=== PATIENT | female | born 1945 | race Hispanic/Latino ===

== ENCOUNTER 2023-05-02 15:50 | Observation (INO) | payer MEDICARE ==
[~2023-05-02] VITALS: Ht 144.8 cm; Wt 47.8 kg
[2023-05-02 18:00] VITALS: BP 154/78; PULSE 74; RESP 18
[2023-05-02 18:46] VITALS: O2SAT 100
[2023-05-02] MEDS ORDERED: 0.9%NACL 50ML IV SCH (20:00)
[2023-05-02] MEDS ORDERED: HYDRALAZINE 20MG/ML VIAL IV PRN (20:00)
[2023-05-02] MEDS ORDERED: ONDANSETRON 4MG INJ IVP PRN (20:00)
[2023-05-02] MEDS ORDERED: LABETALOL 20MG SYG IV PRN (20:00)
[2023-05-02] MEDS ORDERED: HYDROMORPHONE 1 MG INJ IVP PRN (20:00)
[2023-05-02] MEDS ORDERED: RASA1TAB4 PO (20:08)
[2023-05-02] MEDS ORDERED: LEVO50CA4 PO (20:08)
[2023-05-02] MEDS ORDERED: [UNRECOGNIZED DRUG - CODE] PO (20:08)
[2023-05-02] MEDS ORDERED: ROPI3TAB21 PO (20:08)
[2023-05-02] MEDS ORDERED: ERGO500093 PO (20:08)
[2023-05-02] MEDS ORDERED: CARB1CAP PO (20:08)
[2023-05-02] MEDS ORDERED: BENF150C PO (20:08)
[2023-05-02 20:09] VITALS: BP 122/72; PULSE 77; RESP 16
[2023-05-02 20:20] VITALS: O2SAT 100
[2023-05-02 20:20] LABS: HEMATOCRIT 34.3 % (36-48); MEAN CORPUSCULAR HEMOGLOBIN 29.7 pg (27.0-33.0); MEAN CORPUSCULAR HGB CONC 32.7 g/dL (32.0-36.0); RED BLOOD CELL COUNT(AUTO) 3.77 MIL/uL (4.00-5.50); RED CELL DISTRIBUTION WIDTH 12.5 % (11.0-15.5); WHITE BLOOD COUNT (AUTO) 4.5 K/uL (4.8-10.8)
[2023-05-02] MEDS: ZOSYN 3.375GM +NS 50ML IVPB SCH (20:27)
[2023-05-02] MEDS: 0.9%NACL 1000ML 1,000 ML IV SCH (20:27)
[2023-05-02 20:48] LABS: ALBUMIN 3.3 g/dL (3.5-5.0); BILIRUBIN,TOTAL 0.5 mg/dL (0.2-1.0); CREATININE 0.7 mg/dL (0.5-1.5); POTASSIUM 3.7 mmol/L (3.5-5.1); TOTAL PROTEIN, SERUM 6.3 g/dL (6.0-8.3)
[2023-05-02] MEDS: INSULIN HUMULIN R 100 UNIT/ML 3ML SQ SCH (21:00)
[2023-05-02 23:35] VITALS: BP 166/66; PULSE 94; RESP 18
[2023-05-02 23:36] VITALS: BP 129/71; PULSE 75; RESP 18
[2023-05-03 02:30] LABS: APPEARANCE,URINE CLEAR (CLEAR); BILIRUBIN,URINE NEGATIVE (NEGATIVE); COLOR,URINE LIGHT-YELLOW (YELLOW); GLUCOSE, URINE (UA) NEGATIVE (NEGATIVE); KETONES,URINE 10 mg/dL (NEGATIVE); LEUKOCYTE ESTERASE ,URINE NEGATIVE Leu/uL (NEGATIVE); NITRATE,URINE NEGATIVE (NEGATIVE); PROTEIN,URINE NEGATIVE (NEGATIVE); UROBILINOGEN,URINE 0.2 mg/dL (0.2-1.0)
[2023-05-03 02:37] LABS: ADD UA MICROSCOPIC YES
[2023-05-03 02:43] LABS: SQUAMOUS EPITHELIAL CELL,UR RARE /HPF (0-2); WBC,URINE 0-1 /HPF (0-1)
[2023-05-03 03:58] LABS: MEAN CORPUSCULAR HEMOGLOBIN 29.5 pg (27.0-33.0); MEAN CORPUSCULAR HGB CONC 32.6 g/dL (32.0-36.0); MEAN CORPUSCULAR VOLUME 90.7 fL (79-99); PLATELET COUNT (AUTO) 163 K/uL (130-400); RED BLOOD CELL COUNT(AUTO) 3.86 MIL/uL (4.00-5.50); RED CELL DISTRIBUTION WIDTH 12.5 % (11.0-15.5); WHITE BLOOD COUNT (AUTO) 3.7 K/uL (4.8-10.8)
[2023-05-03] MEDS: ZOSYN 3.375GM +NS 50ML IVPB SCH ×3 (03:59→20:15)
[2023-05-03 04:03] VITALS: BP 133/75; PULSE 69; RESP 18
[2023-05-03 04:29] LABS: CREATININE 0.7 mg/dL (0.5-1.5); MAGNESIUM 1.7 mg/dL (1.80-2.40); PHOSPHORUS 2.6 mg/dL (2.5-4.9); POTASSIUM 3.4 mmol/L (3.5-5.1); THYROID STIMULATING HORMONE 1.36 uIU/mL (0.36-3.74)
[2023-05-03 04:32] LABS: EOSINOPHILS % (MANUAL) 1 % (1-6); LYMPHOCYTES % (MANUAL) 37 % (22-44); SEGMENTED NEUTROPHILS % 62 % (40-70); TOTAL CELLS COUNTED 100
[2023-05-03 04:33] LABS: MAN.DIFF COMMENT-IMPRESSION MANUAL DIFFERENTIAL; PLATELET MORPHOLOGY COMMENT ADEQUATE; WBC MORPHOLOGY NORMAL
[2023-05-03 04:34] LABS: B-TYPE NATRIURETIC PEPTIDE 13 pg/mL (0-100)
[2023-05-03] MEDS ORDERED: POTASSIUM CHLORIDE 20MEQ/100ML 100 ML IV PRN ×2 (05:00→07:00)
[2023-05-03] MEDS ORDERED: POTASSIUM CHLORIDE 10% ELIXIR 20 MEQ/15 ML UDCUP PO PRN ×2 (05:00→07:00)
[2023-05-03] MEDS ORDERED: MAGNESIUM 2GM PREMIX 50ML 50 ML IV PRN (05:00)
[2023-05-03] MEDS: INSULIN HUMULIN R 100 UNIT/ML 3ML SQ SCH ×4 (05:27→20:16)
[2023-05-03] MEDS: 0.9%NACL 1000ML 1,000 ML IV SCH ×2 (05:28→16:55)
[2023-05-03 08:00] VITALS: BP 137/74; PULSE 69; RESP 18; O2SAT 99
[2023-05-03] MEDS: ENOXAPARIN SODIUM 30 MG/0.3 ML SQ SCH (09:00)
[2023-05-03 12:00] VITALS: BP 117/63; PULSE 67; RESP 18
[2023-05-03 16:00] VITALS: BP 113/68; PULSE 78; RESP 18
[2023-05-03] MEDS: KCL 20 MEQ ERTAB PO PRN ×2 (18:43→20:15)
[2023-05-03 20:00] VITALS: BP 146/75; PULSE 69; RESP 18
[2023-05-03 20:15] VITALS: O2SAT 99
[2023-05-04] VITALS: BP 156/80; PULSE 70; RESP 18
[2023-05-04] MEDS: 0.9%NACL 1000ML 1,000 ML IV SCH ×2 (02:00→12:00)
[2023-05-04 03:47] LABS: BASOPHILS # (AUTO) 0.03 K/uL (0.00-0.20); BASOPHILS % (AUTO) 0.8 % (0.0-5.0); EOSINOPHILS # (AUTO) 0.01 K/uL (0.00-0.70); EOSINOPHILS % (AUTO) 0.3 % (0.0-8.0); HEMATOCRIT 35.3 % (36-48); IMMATURE GRANULOCYTE ABSOLUTE 0.01 K/uL (0-1); LYMPHOCYTES # (AUTO) 1.2 K/uL (1.0-4.8); LYMPHOCYTES % (AUTO) 30.3 % (21.0-51.0); MEAN CORPUSCULAR HEMOGLOBIN 29.5 pg (27.0-33.0); MEAN CORPUSCULAR HGB CONC 32.6 g/dL (32.0-36.0); MEAN CORPUSCULAR VOLUME 90.5 fL (79-99); MONOCYTES # (AUTO) 0.3 K/uL (0.1-1.0); MONOCYTES % (AUTO) 7.5 % (3.0-13.0); NEUTROPHILS # (AUTO) 2.4 K/uL (1.8-7.7); NEUTROPHILS % (AUTO) 60.8 % (40.0-77.0); PLATELET COUNT (AUTO) 163 K/uL (130-400); RED CELL DISTRIBUTION WIDTH 12.6 % (11.0-15.5); WHITE BLOOD COUNT (AUTO) 3.9 K/uL (4.8-10.8)
[2023-05-04 04:00] VITALS: BP 113/71; PULSE 70; RESP 18
[2023-05-04 04:05] LABS: ALBUMIN 3.4 g/dL (3.5-5.0); BILIRUBIN,TOTAL 0.9 mg/dL (0.2-1.0); CREATININE 0.7 mg/dL (0.5-1.5); POTASSIUM 3.9 mmol/L (3.5-5.1); TOTAL PROTEIN, SERUM 6.3 g/dL (6.0-8.3)
[2023-05-04] MEDS: ZOSYN 3.375GM +NS 50ML IVPB SCH ×2 (04:23→14:03)
[2023-05-04] MEDS: INSULIN HUMULIN R 100 UNIT/ML 3ML SQ SCH ×3 (05:10→16:30)
[2023-05-04 07:30] VITALS: BP 106/70; PULSE 91; RESP 18
[2023-05-04 08:00] VITALS: O2SAT 100
[2023-05-04] MEDS: ENOXAPARIN SODIUM 30 MG/0.3 ML SQ SCH (08:50)
[2023-05-04] MEDS ORDERED: LACTULOSE 20 GM/30 ML UDCUP PO ONE (11:30)
[2023-05-04 11:33] VITALS: BP 137/75; PULSE 85; RESP 16
== END 2023-05-04 17:00 | disposition home or self-care (01) ==
LOC: EDH 15:50 → DIRECT 15:51 → 4BH 18:00
PROVIDERS: ADMIT Internal Medicine Pulmonary Disease; ATTEND Internal Medicine Pulmonary Disease
DX: K59.00 Constipation, unspecified (principal); M81.0 Age-related osteoporosis without current pathological fracture; M48.56XA Collapsed vertebra, not elsewhere classified, lumbar region, initial encounter for fracture; E05.90 Thyrotoxicosis, unspecified without thyrotoxic crisis or storm; G20 Parkinson's disease; F02.80 Dementia in other diseases classified elsewhere, unspecified severity, without behavioral disturbance, psychotic disturbance, mood disturbance, and anxiety; Z79.899 Other long term (current) drug therapy
CPT/HCPCS: 96365; 96366 ×3; 82550 ×4; 83874 ×3; 84484 ×3; 80053 ×2; 85027; 36415 ×3; 74176 ×2; 84145; 96361; 96367; 84443; 83615; 83735 ×2; 84100; 80048; 83880; 85025 ×2; 87088; 82948 ×5; 81001; G0378 ×45; J2543 ×6; J1650

== ENCOUNTER → 2023-06-18 | Outpatient (CLI) | payer MEDICARE ==
[~2023-06-18] MED LIST: BENF150C PO; CARB1CAP PO; ERGO500093 PO; LEVO50CA4 PO; RASA1TAB4 PO; ROPI3TAB21 PO; [UNRECOGNIZED DRUG - CODE] PO
== END | disposition home or self-care (01) ==
LOC: RAH 07:22
PROVIDERS: ATTEND Internal Medicine
DX: R14.0 Abdominal distension (gaseous) (principal); R63.4 Abnormal weight loss
CPT/HCPCS: 78264; A9541

== ENCOUNTER → 2024-08-04 | Outpatient (CLI) | payer MEDICARE | END | disposition home or self-care (01) | LOC: SHCH 11:16 | PROVIDERS: ATTEND Internal Medicine Cardiovascular Disease | DX: R60.9 Edema, unspecified (principal) | CPT/HCPCS: 93306; 93356 ==

== ENCOUNTER → 2024-09-02 | Outpatient (CLI) | payer MEDICARE ==
--- NOTE | 2024-09-03 13:39 | HMCSR ---
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 (R) 65.5cm/sec, Biphasic, Prof Fem Art. (L) 60.2cm/sec, Biphasic, Fem Art Prox. (R) 88.8cm/sec, Biphasic, Fem Art Prox. (L) 89.1cm/sec, Biphasic, Fem Art Mid. (R) 100.7cm/sec, Biphasic, Fem Art Mid. (L) 76.3cm/sec, Biphasic, Fem Art Dist (R) 64.6cm/sec, Biphasic, Fem Art Dist. (L) 62.8cm/sec, Biphasic, Pop Art(AK) (R) 71.8cm/sec, Biphasic, Pop Art (AK) (L) 61.2cm/sec, Biphasic, Pop Art (Fossa)(R) 55.2cm/sec, Biphasic, Pop Art (Fossa) (L) 57.9cm/sec, Biphasic, Pop Art(BK) (R) 88.8cm/sec, Biphasic, Pop Art (BK) (L) 69.3cm/sec, Biphasic, TAPE WEAVER Prox. (R) 79.0cm/sec, Biphasic, TAPE WEAVER Prox. (L) 70.1cm/sec, Biphasic, TAPE WEAVER Mid. (R) 73.6cm/sec, Biphasic, TAPE WEAVER Mid. (L) 69.3cm/sec, Biphasic, TAPE WEAVER Dist. (R) 79.0cm/sec, Biphasic, TAPE WEAVER Dist. (L) 61.2cm/sec, Biphasic, Per Art Prox. (R) 49.3cm/sec, Biphasic, Per Art Prox. (L) 44.0cm/sec, Biphasic, Per Art Mid. (R) 49.0cm/sec, Biphasic, Per Art Mid. (L) 39.2cm/sec, Biphasic, Per Art Dist. (R) 46.2cm/sec, Biphasic, Per Art Dist. (L) 35.9cm/sec, Biphasic, ELVIA Prox. (R) 73.6cm/sec, Biphasic, ELVIA Prox. (L) 91.4cm/sec, Biphasic, ELVIA Mid. (R) 43.2cm/sec, Biphasic ELVIA Mid. (L) 52.5cm/sec, Biphasic, ELVIA Dist. (R) 77.5cm/sec, Biphasic, ELVIA Dist. (L) 112.3cm/sec, Biphasic, Technologist Impression No evidence of significant arterial insufficiency of bilateral lower extremities. Conclusion No evidence of significant arterial insufficiency of bilateral lower extremities. Conclusion No evidence of significant arterial insufficiency of bilateral lower extremities.
== END | disposition home or self-care (01) ==
LOC: SHCH 08:27
PROVIDERS: ATTEND Internal Medicine Cardiovascular Disease
DX: I73.9 Peripheral vascular disease, unspecified (principal)
CPT/HCPCS: 93925

== ENCOUNTER → 2025-08-03 | Outpatient (CLI) | payer MEDICARE ==
[~2025-08-03] MED LIST changes: +IOHEXOL-350 75 ML VIAL IV ONE; -LEVO50CA4 PO; +LEVO50CA5 PO
--- NOTE | 2025-08-04 10:55 | HMCIMG ---
EXAM: CT Abdomen and Pelvis with IV contrast CLINICAL HISTORY: LOWER ABDOMINAL PAIN, UNSPECIFIED TECHNIQUE: Axial computed tomography images of the abdomen and pelvis with intravenous contrast. CONTRAST: with intravenous contrast. COMPARISON: None provided. FINDINGS: LUNG BASES: Dependent atelectatic changes in the bilateral lower lobes. No pleural effusions are seen. LIVER: Small hypodense area in segment of the liver measuring 7 mm, too small to characterize (series 2; image 25). GALLBLADDER AND BILE DUCTS: Post cholecystectomy status. No biliary ductal dilatation is evident. PANCREAS: Unremarkable. SPLEEN: Unremarkable. ADRENAL GLANDS: Unremarkable. KIDNEYS, URETERS, AND BLADDER: Small, well-defined hypodense area in the mid-pole of the right kidney measuring 5 mm. This may reflect a simple cyst; however would be better characterized with ultrasound on a non-emergent basis. There is no hydronephrosis or hydroureter. No urinary calculi are seen. STOMACH AND BOWEL: Unremarkable appearance of the stomach and bowel. No evidence of bowel obstruction. No evidence suggesting enteritis or colitis. Large amount of stool throughout the colon. APPENDIX: No evidence of acute appendicitis on CT examination. PERITONEUM: No free fluid. No free air. LYMPH NODES: No lymphadenopathy is evident. REPRODUCTIVE: Post-hysterectomy status. No adnexal mass. VASCULATURE: No evidence of abdominal aortic aneurysm. BONES: No aggressive appearing osseous lesion. No acute osseous pathology evident. Multilevel wedge compressions in thoracolumbar vertebrae, most prominent in the T10 vertebra, with approximately a 66% decrease in the vertebral height. Hyperdense component in the T10 and L1 vertebrae, likely postoperative status. Mild lumbar levoscoliosis. Multilevel degenerative changes in the visualized spine. OTHER FINDINGS: Divarication of recti in the midline supraumbilical region. IMPRESSION: 1. No acute intraabdominal or pelvic pathology. 2. Constipation. /[place]
== END | disposition home or self-care (01) ==
LOC: RAH 10:30
PROVIDERS: ATTEND Internal Medicine Gastroenterology
DX: K59.00 Constipation, unspecified (principal); J98.11 Atelectasis; M47.815 Spondylosis without myelopathy or radiculopathy, thoracolumbar region; M48.55XA Collapsed vertebra, not elsewhere classified, thoracolumbar region, initial encounter for fracture; M41.86 Other forms of scoliosis, lumbar region; R10.30 Lower abdominal pain, unspecified; Z90.710 Acquired absence of both cervix and uterus; Z90.49 Acquired absence of other specified parts of digestive tract
CPT/HCPCS: 74177; Q9967